=== PATIENT | female | born 1940 | race Caucasian/White ===

== ENCOUNTER 2017-01-30 11:50 | Day surgery (SDC) | payer MEDICARE ==
[2017-01-25 12:30] VITALS: BMI 25.6
[~2017-01-30 11:50] MED LIST: LACTATED RINGERS 1,000 ML IV SCH; MIDAZOLAM 2 MG/2 ML VIAL IV PRN; ONDANSETRON 4 MG/2 ML VIAL IVP ONE; Pre Op ABX Message 1 EACH MISC MISCELLANE ONE; fentaNYL (PF) 50 MCG/ML 2 ML AMP IV PRN
[2017-01-30 12:24] VITALS: RESP 16; TEMP 97.9
[2017-01-30] MEDS ORDERED: LIDOCAINE 1% 20 ML VIAL (10MG/ML) FOR IV START INTRADERMA ONE (12:46)
[2017-01-30] MEDS ORDERED: PROPOFOL 10 MG/ML 20 ML VIAL IV ONE (13:08)
[2017-01-30] MEDS ORDERED: MIDAZOLAM 2 MG/2 ML VIAL ONE (13:08)
[2017-01-30] MEDS ORDERED: fentaNYL (PF) 50 MCG/ML 2 ML AMP ONE (13:08)
[2017-01-30] MEDS ORDERED: LIDOCAINE 1% INJ 10MG/ML (20 ML MDV) ONE (13:08)
[2017-01-30] MEDS ORDERED: BUPIVACAINE (PF) 0.5% 30 ML VIAL SQ ONE (13:17)
[2017-01-30] MEDS ORDERED: LIDOCAINE 2% INJ 20 MG/ML SQ ONE (13:17)
[2017-01-30 13:57] VITALS: BP 123/73; PULSE 56
--- NOTE | 2017-01-31 08:28 | OP ---
DATE OF SERVICE: 01/30/2017 SURGEON: GUILLE MARES DO VOCATIONAL CASE MANAGER: PREOPERATIVE DIAGNOSIS: Ganglion cyst and osteophytic spur DIP joint right middle finger. POSTOPERATIVE DIAGNOSIS: Ganglion cyst and osteophytic spur DIP joint right middle finger. OPERATION: Arthrotomy DIP joint right middle finger with incision of ganglion cyst and osteophytic spur. ANESTHESIA: ESTIMATED BLOOD LOSS: SPECIMENS REMOVED: COMPLICATIONS: OPERATIVE FINDINGS: DESCRIPTION OF PROCEDURE: Patient taken to the OR and given IV sedation. Digital block was performed with Zylocaine and Marcaine, both without epinephrine. T shaped incision was made over the DIP joint. The extensor tendon edge was visualized and an arthrotomy was made into the joint. The ganglion cyst was excised along with debridement of the joint of its root. The spur was resected and the joint was debrided. The wound was thoroughly irrigated. The tourniquet was then released. Hemostasis was acquired with pressure and electrocautery. Skin closed with 5-0 Nylon suture. Soft bulky dressing was then applied. The patient was taken to the recovery room in satisfactory condition. SHAUN
--- NOTE | 2017-02-01 11:49 | CDI ---
Belinda. There are some inconsistencies within the Operative Report and the documentation within the encounter. The patient presented with a ganglion cyst and bone spur and the title of the Operation is "Arthrotomy DIP joint right middle finger with incision of ganglion cyst and osteophytic spur", yet Description of Procedure describes an arthroplasty with insertion of prosthesis and makes no mention of excising a ganglion cyst or spur. Can you please clarify which procedures were actually performed? Please issue an addendum to the Operative Report. Thank you! REDDY Flannery
== END 2017-01-30 14:16 | disposition home or self-care (01) ==
LOC: OR 11:50
PROVIDERS: ATTEND Orthopaedic Surgery Hand Surgery
DX: M67.441 Ganglion, right hand (principal); M25.741 Osteophyte, right hand; M19.041 Primary osteoarthritis, right hand; Z79.899 Other long term (current) drug therapy; Z88.5 Allergy status to narcotic agent; Z91.09 Other allergy status, other than to drugs and biological substances
CPT/HCPCS: 88304; 26160; J2001 ×2; J2250; J2405; J3010; J2704

== ENCOUNTER → 2017-01-31 | Outpatient (CLI) | payer MEDICARE ==
[~2017-01-31] MED LIST changes: -LACTATED RINGERS 1,000 ML IV SCH; -MIDAZOLAM 2 MG/2 ML VIAL IV PRN; -ONDANSETRON 4 MG/2 ML VIAL IVP ONE; -Pre Op ABX Message 1 EACH MISC MISCELLANE ONE; +SODIUM CHLORIDE 0.9% 250 ML in EMPTY BAG 1 BAG IV PRN; +SODIUM CHLORIDE 0.9% 500 ML in EMPTY BAG 1 BAG IV PRN; +ZOLEDRONIC ACID 5 MG in SODIUM CHLORIDE 0.9% 100 ML IV ONE; -fentaNYL (PF) 50 MCG/ML 2 ML AMP IV PRN
[2017-01-31 09:17] VITALS: BP 144/63; PULSE 56; RESP 16; TEMP 99
== END | disposition home or self-care (01) ==
LOC: PROCWHC3 09:01
PROVIDERS: ATTEND Family Medicine
DX: M81.0 Age-related osteoporosis without current pathological fracture (principal)
CPT/HCPCS: 96365; J3489

== ENCOUNTER → 2018-03-21 | Outpatient (CLI) | payer MEDICARE ==
--- NOTE | 2018-03-22 11:23 | BD ---
EXAMINATION TYPE: Axial Bone Density DATE OF EXAM: 03/21/2018 COMPARISON: NONE CLINICAL HISTORY: Osteoporosis screening Height: 138 Weight: 61 inches FRAX RISK QUESTIONS: Alcohol (3 or more units per day): no Family History (Parent hip fracture): no Glucocorticoids (More than 3mos): yes, uses inhalers as needed (Ex: prednisone, prednisolone, methylprednisolone, dexamethasone, and hydrocortisone). History of Fracture in Adulthood: no Secondary Osteoporosis: 1. Type 1 Diabetes: no 2. Hyperthyroidism: no 3. Menopause before 45: no 4. Malnutrition: no 5. Chronic liver disease: no Rheumatoid Arthritis: yes Current Tobacco Use: no RISK FACTORS HISTORY OF: Family History of Osteoporosis: unsure Active: yes Diet low in dairy products/other sources of calcium: no Postmenopausal woman: yes Take estrogen and/or progesterone medications: no Lost more than 2 inches in height since high school: no Frequent falls: no Poor Health: no Hyperparathyroidism: no Adrenal Insufficiency: no MEDICATIONS: Prednisone or other steroids: yes, inhalers as needed...not on regular/daily basis Osteoporosis Medications:yes Which medication: reclast How Long: about 3 years Additional Medications: multivitamin Additional History: partial hysterectomy age 36 EXAM MEASUREMENTS: Bone mineral densitometry was performed using the [employer]. Bone mineral density as measured about the Lumbar spine is: ----- L1-L4(G/cm2): 1.095 T Score Values are as follows: ----- L2: -0.9 ----- L3: -1.0 ----- L4: -0.3 ----- L1-L4: -0.7 Bone mineral density has: Increased 12.0% since study of: 12/24/2013 Bone mineral density about the R hip (g/cm2): 0.783 Bone mineral density about the L hip (g/cm2): 0.733 T Score values are as follows: -----R Neck: -1.8 -----L Neck: -2.2 -----R Total: -1.8 -----L Total: -1.8 Bone mineral density has: Increased 1.4% since study of: 12/24/2013 IMPRESSION: Osteopenia (T Score between -2.5 and 1). There is slightly increased risk of fracture and patient may be considered for treatment. Re-Screen 2-5 years. NOTE: T-SCORE=SD OF THE YOUNG ADULT MEAN.
--- NOTE | 2018-03-23 08:49 | MM ---
Reason for exam: screening (asymptomatic). Last mammogram was performed 2 years and 11 months ago. History: Patient is postmenopausal. Physical Findings: A clinical breast exam by your physician is recommended on an annual basis and results should be correlated with mammographic findings. MG 3D Screening Mammo W/Cad Bilateral CC and MLO view(s) were taken. Prior study comparison: April 07, 2015, bilateral MG screening mammo w CAD. December 24, 2013, bilateral digital screening mammo w/CAD. There are scattered fibroglandular densities. No significant changes when compared with prior studies. ASSESSMENT: Benign, BI-RAD 2 RECOMMENDATION: Routine screening mammogram of both breasts in 1 year.
== END | disposition home or self-care (01) ==
LOC: RADMAMWWP 09:40
PROVIDERS: ATTEND Family Medicine
DX: Z12.31 Encounter for screening mammogram for malignant neoplasm of breast (principal); M85.80 Other specified disorders of bone density and structure, unspecified site; M81.0 Age-related osteoporosis without current pathological fracture
CPT/HCPCS: 77063; 77067; 77080

== ENCOUNTER → 2018-05-17 | Outpatient (CLI) | payer MEDICARE ==
[~2018-05-17] MED LIST changes: -SODIUM CHLORIDE 0.9% 250 ML in EMPTY BAG 1 BAG IV PRN
[2018-05-17 14:35] VITALS: BP 138/63; PULSE 57; RESP 16; TEMP 97.7
== END | disposition home or self-care (01) ==
LOC: PROCWHC3 14:21
PROVIDERS: ATTEND Family Medicine
DX: M81.0 Age-related osteoporosis without current pathological fracture (principal)
CPT/HCPCS: 96365; J3489

== ENCOUNTER → 2019-08-19 | Outpatient (CLI) | payer MEDICARE ==
[~2019-08-19] MED LIST changes: +SODIUM CHLORIDE 0.9% 500 ML 500 ML in EMPTY BAG 1 BAG IV PRN; -SODIUM CHLORIDE 0.9% 500 ML in EMPTY BAG 1 BAG IV PRN; +ZOLEDRONIC ACID 5 MG in SODIUM CHLORIDE 0.9% 100 ML IV NR; -ZOLEDRONIC ACID 5 MG in SODIUM CHLORIDE 0.9% 100 ML IV ONE
[2019-08-19 13:29] VITALS: BP 156/84; PULSE 50; RESP 16; TEMP 98.6
== END | disposition home or self-care (01) ==
LOC: PROCWHC3 13:07
PROVIDERS: ATTEND Family Medicine
DX: M81.0 Age-related osteoporosis without current pathological fracture (principal)
CPT/HCPCS: 96365; J3489

== ENCOUNTER → 2019-12-10 | Outpatient (CLI) | payer MEDICARE ==
--- NOTE | 2019-12-11 14:51 | MM ---
Reason for exam: screening (asymptomatic). Last mammogram was performed 1 year and 9 months ago. History: Patient is postmenopausal. Physical Findings: A clinical breast exam by your physician is recommended on an annual basis and results should be correlated with mammographic findings. MG Screening Mammo w CAD Bilateral CC and MLO view(s) were taken. Prior study comparison: March 21, 2018, bilateral MG 3d screening mammo w/cad. April 07, 2015, bilateral MG screening mammo w CAD. There are scattered fibroglandular densities. No significant changes when compared with prior studies. ASSESSMENT: Benign, BI-RAD 2 RECOMMENDATION: Routine screening mammogram of both breasts in 1 year.
== END | disposition home or self-care (01) ==
LOC: RADMAMWWP 13:39
PROVIDERS: ATTEND Family Medicine
DX: Z12.31 Encounter for screening mammogram for malignant neoplasm of breast (principal)
CPT/HCPCS: 77067

== ENCOUNTER → 2021-05-27 | Outpatient (CLI) | payer MEDICARE ==
--- NOTE | 2021-05-31 14:14 | MM ---
Reason for exam: screening (asymptomatic). Last mammogram was performed 1 year and 6 months ago. History: Patient is postmenopausal. Physical Findings: A clinical breast exam by your physician is recommended on an annual basis and results should be correlated with mammographic findings. MG 3D Screening Mammo W/Cad Bilateral CC and MLO view(s) were taken. Prior study comparison: December 10, 2019, bilateral MG screening mammo w CAD. March 21, 2018, bilateral MG 3d screening mammo w/cad. There are scattered fibroglandular densities. Benign vascular calcifications. No significant changes when compared with prior studies. ASSESSMENT: Negative, BI-RAD 1 RECOMMENDATION: Routine screening mammogram of both breasts in 1 year.
== END | disposition home or self-care (01) ==
LOC: RADMAMWWP 12:55
PROVIDERS: ATTEND Family Medicine
DX: Z12.31 Encounter for screening mammogram for malignant neoplasm of breast (principal); Z78.0 Asymptomatic menopausal state
CPT/HCPCS: 77063; 77067

== ENCOUNTER → 2021-08-23 | Outpatient (CLI) | payer MEDICARE ==
[2021-08-23 13:28] VITALS: BP 145/75; PULSE 59; RESP 16; TEMP 97.8
== END ==
LOC: PROCWHC3 12:48
PROVIDERS: ATTEND Family Medicine
DX: M81.0 Age-related osteoporosis without current pathological fracture (principal); Z88.5 Allergy status to narcotic agent; Z91.048 Other nonmedicinal substance allergy status
CPT/HCPCS: 96365; J3489

== ENCOUNTER → 2022-10-20 | Outpatient (CLI) | payer MEDICARE ==
[2022-10-20 09:03] VITALS: BP 171/84; PULSE 75; RESP 16; TEMP 97.6
== END ==
LOC: PROCWHC3 08:50
PROVIDERS: ATTEND Family Medicine
DX: M81.0 Age-related osteoporosis without current pathological fracture (principal); Z88.5 Allergy status to narcotic agent; Z91.041 Radiographic dye allergy status
CPT/HCPCS: 96365; J3489

== ENCOUNTER → 2023-02-20 | Outpatient (CLI) | payer MEDICARE ==
--- NOTE | 2023-02-20 13:36 | MM ---
Reason for Exam: Clinical finding. Last mammogram was performed 1 year(s) and 9 month(s) ago. Indicated Problems: Pain. Patient History: Menarche at age 11. First Full-Term at age 25. Hysterectomy at age 36. Postmenopausal. Risk Values: Bruna 5 year model risk: 1.7%. NCI Lifetime model risk: 2.0%. Tissue Density: There are scattered fibroglandular densities. Findings: Analyzed By CAD. Vascular calcification bilaterally is redemonstrated. Occasional tiny benign-appearing round calcifications bilaterally is again seen. Benign-appearing bilateral axillary lymph nodes are redemonstrated. No suspicious new mass or worrisome group of microcalcification bilaterally. Overall Assessment: Benign, BI-RAD 2 Management: Screening Mammogram of both breasts in 1 year. Managed clinically symptoms of pulling sensation in right breast. Results were given to the patient verbally at the time of exam. Patient should continue monthly self-breast exams. A clinical breast exam by your physician is recommended on an annual basis. This exam should not preclude additional follow-up of suspicious palpable abnormalities. Note on Bruna scores and lifetime risk: 1. A Bruna score greater than 3% is considered moderate risk. If this is the case, consider specialist referral to assess eligibility for a risk reducing agent. 2. If overall lifetime risk for the development of breast cancer is 20% or higher, the patient may qualify for future screening with alternating mammogram and breast MRI. Electronically signed and approved by: Obed Harper M.D.
== END | disposition home or self-care (01) ==
LOC: RADMAMWWP 12:34
PROVIDERS: ATTEND Family Medicine
DX: R92.8 Other abnormal and inconclusive findings on diagnostic imaging of breast (principal); N64.4 Mastodynia; Z78.0 Asymptomatic menopausal state
CPT/HCPCS: 77066; G0279; 77062

== ENCOUNTER → 2023-11-23 | Outpatient (CLI) | payer MEDICARE ==
[2023-11-23 13:35] VITALS: BP 159/77; PULSE 58; RESP 16; TEMP 97.5
== END ==
LOC: PROCWHC3 12:56
PROVIDERS: ATTEND Family Medicine
DX: M81.0 Age-related osteoporosis without current pathological fracture (principal); Z88.5 Allergy status to narcotic agent; Z79.899 Other long term (current) drug therapy
CPT/HCPCS: 96365; J3489